=== PATIENT | male | born 1980 | race Caucasian/White ===

== ENCOUNTER → 2017-04-06 | Outpatient (CLI) | payer OTHER ==
[2017-04-06 13:59] LABS: Anion Gap 10 mmol/L; Blood Urea Nitrogen 5 mg/dL (9-20); Calcium 9.3 mg/dL (8.4-10.2); Carbon Dioxide 28 mmol/L (22-30); Chloride 103 mmol/L (98-107); Glucose 126 mg/dL (74-99); Non-African American GFR(MDRD) >60 (>60 ml/min/1.73 sqM); Potassium 3.9 mmol/L (3.5-5.1); Sodium 141 mmol/L (137-145)
--- NOTE | 2017-04-07 02:30 | MR ---
EXAMINATION TYPE: MR femur/thigh LT wo/w con DATE OF EXAM: 04/06/2017 COMPARISON: NONE HISTORY: LT AKA stump pain/swelling CONTRAST: Standard multiplanar, multisequence MRI departmental protocol utilizing 15 mL intravenous MultiHance gadolinium contrast. FINDINGS: There is left side above-knee amputation deformity. I see no focal bone destruction. There is soft tissue pathologic enhancement on the lateral aspect of the stump. This measures 5 x 2.5 cm. T here is no pathologic fluid collection. There is increased signal on the proton density images involv ing cutaneous tissues over the lateral and inferior stump. IMPRESSION: No evidence of osteomyelitis. Soft tissue enhancement at the lateral aspect of the stump consistent with myositis or phlegmon. Subc utaneous edema consistent with focal cellulitis. No abscess seen.
== END | disposition home or self-care (01) ==
LOC: RADMRIMAIN 13:07
PROVIDERS: ATTEND Surgery Vascular Surgery
DX: L03.116 Cellulitis of left lower limb (principal); Z89.612 Acquired absence of left leg above knee
CPT/HCPCS: 80048; 73720; 36415; A9577

== ENCOUNTER → 2022-10-13 | Outpatient (CLI) | payer OTHER ==
[2022-10-13 12:18] VITALS: BP 121/66; PULSE 74; RESP 18; TEMP 98
--- NOTE | 2022-10-13 14:14 | P.PAINPG ---
PQRS Measure Charge Sheet Comment: HISTORY OF PRESENT ILLNESS: 42 yr old as a referral from Dr Smith presents today w severe and chronic secondary to for evaluation. Pt states pain level is at 8 /10 in intensity, constant, localized in the lower lumbar spine, sharp in character w shooting pain towards the LLE. Pain is provoked by cold weather. Pain is alleviated by PT x 1 session which provoked pain, massage therapy x 5 visits in 2021, heat rice bag use, meds (Rosine, ibu), repositioning and rest. PMH: OA, Vitamin D Deficiency, Asthma, Anxiety PSH: L AKA, SH: Daily tobacco use, No ETOH use, Cannabis use. . On Disability. FH: Non contributory All: NKDA Meds: See list REVIEW OF ORGAN SYSTEMS: CONSTITUTIONAL: No fevers or chills. No recent weight loss. NEUROLOGICAL: + numbness and tingling along the distal extremities. No seizure disorders or headaches. MUSCULOSKELETAL: + pain PSYCHIATRIC: Denies current depression or suicidal thoughts. Physical Examinations : Constitutional : Cooperative , not in acute distress . Neurologic : Cranial nerve II to XII intact. No focal neurological deficits. Psychiatric : alert & oriented x 3. Matching mood & appropriate affect. Judgment & insight intact. Musculoskeletal : Cervical Spine Motor strength in the deltoid and biceps: Normal right side. Normal Left side Motor strength biceps and the wrist extensors: Normal right side . Normal left side Motor strength in the triceps muscle: Normal right side. Normal left side Deep tendon reflexes: Normal at the biceps. Normal at Brachioradialis. Normal at triceps Vertebral body tenderness to deep palpation over Cervical facet loading test: positive bilaterally Spurling test: positive bilaterally Neck distraction test: positive bilaterally Shanique sign: positive bilaterally Lumbar spine +L AKA Motor strength lower extremities ,thigh and legs 5/5 Right side , 5/5 Left side Deep tendon reflexes : Normal Knee Jerk. Normal Ankle Jerk Vertebral body tenderness over Lumbar facet Loading Test: positive Right / positive Left Range of motion of the lumbar spine Flexion 30 degrees, extension 10 degrees Straight Leg Raise test: Left/ Right positive at degree Verona test: positive right / positive left. Severe tenderness over the Sacroiliac joint on the Right / Left sides Gaenslen test: positive bilaterally Seated flexion test: positive bilaterally. Sacral spine : Severe tenderness over the Sacroiliac joint: right side / left side Range of motion: Flexion of the lumbar spine <60 degrees Range of motion: Extension of the lumbar spine <20 degrees Gaenslen's Test positive Kee's Test positive Verona test: positive right side / left side Thigh Thrust Test Sacral Thrust Test Imaging: MR [facility] from 04/06/2017 reviewed Assessment/ Plan : Phantom LLE pain s/p L AKA (2016) Recommendation of x ray of the lumbar spine re: M 51.36 May need additional testing if indicated. May return to clinic within 2-3 wks for re evaluation. Risks, benefits of procedure discussed and patient verbalized understanding. Denies aspirin or anti- coagulant use or medical history of diabetes. Protocol for discontinuation/ continuation of medications marco a procedure discussed. All questions answered. I have spent greater than 30 minutes on patient care today. Dr Iraheta was available by phone for the evaluation of this patient. The time was used to review the medical records including relevant urine studies and Prescription history (MAPs), review of the available imaging, evaluation and examination of the patient, coordination of care with the medical staff and if applicable referring physicians, as well as creation of the medical record PQRS Narrative: Smoking Status Unknown if ever smoked Home Medications: Ambulatory Orders Cholecalciferol (Vitamin D3) [Vitamin D3 (125 MCG = 5,000 IU)] 125 mcg PO DAILY 10/13/22 DULoxetine HCL [Cymbalta] 60 mg PO ONCE 10/13/22 HYDROcodone/APAP 7.5-325MG [Rosine 7.5-325] 1 tab PO Q4-6H PRN 10/13/22 Naloxone [Narcan] 0 mg NASAL DIRECTED PRN 10/13/22 QUEtiapine FUMARATE [SEROquel XR] 150 mg PO HS 10/13/22 Sildenafil Citrate [Sildenafil] 20 mg PO DIRECTED 10/13/22 Tamsulosin HCl [Flomax] 0.4 mg PO ONCE 10/13/22 Controlled Substance Measures - Controlled Substance Measures Is patient prescribed a controlled substance at discharge?: No
== END ==
LOC: PNWHC3 10:04
PROVIDERS: ATTEND Specialist
DX: G54.6 Phantom limb syndrome with pain (principal); Z89.612 Acquired absence of left leg above knee; M19.90 Unspecified osteoarthritis, unspecified site; J45.909 Unspecified asthma, uncomplicated; K21.9 Gastro-esophageal reflux disease without esophagitis
CPT/HCPCS: 99202

== ENCOUNTER → 2022-10-13 | Outpatient (CLI) | payer OTHER ==
--- NOTE | 2022-10-13 11:46 | XR ---
EXAMINATION TYPE: XR lumbar spine 2 or 3V DATE OF EXAM: 10/13/2022 CLINICAL HISTORY: M51.36 OTHER INTERVERTEBRAL DISC DEGENERATION, PRASANNA TECHNIQUE: Three views of the lumbar spine are submitted. COMPARISON: CT chest abdomen and pelvis 09/15/2016 FINDINGS: There are 5 lumbar type vertebral bodies identified. The lumbar spine shows satisfactory alignment w ithout evidence of acute fracture or dislocation. Vertebral body heights are within normal limits. Disc spaces are within normal limits. The overlying soft tissue appears unremarkable. IMPRESSION: No acute fracture or dislocation is seen in the lumbar spine.
== END | disposition home or self-care (01) ==
LOC: RADXRMAIN 11:09
PROVIDERS: ATTEND Physician Assistant Medical
DX: M51.36 Other intervertebral disc degeneration, lumbar region (principal)
CPT/HCPCS: 72100

== ENCOUNTER 2025-04-04 07:49 | Day surgery (SDC) | payer BC, OTHER ==
[2025-04-04] MEDS: IV FLUID CONTINUATION 1,000 ML IV ONE (08:09)
[2025-04-04 08:14] VITALS: RESP 16; TEMP 97.8
[2025-04-04] MEDS: LACTATED RINGERS 1,000 ML IV SCH (08:25)
[2025-04-04] MEDS ORDERED: PROPOFOL 10 MG/ML 20 ML VIAL IV ONE (08:56)
[2025-04-04] MEDS ORDERED: LIDOCAINE 1% INJ 10MG/ML (20 ML MDV) ONE (08:56)
--- NOTE | 2025-04-04 09:17 | P.PCN ---
Date of Procedure: 04/04/25 Preoperative Diagnosis: Screening Postoperative Diagnosis: Internal hemorrhoids Procedure(s) Performed: Colonoscopy Anesthesia: MAC Surgeon: Cuate Gates Pathology: none sent Condition: stable Disposition: same day Indications for Procedure: 44-year-old male presents today for screening colonoscopy. Denies any blood in his stool. Never has had colonoscopy previously. Risks, benefits and alternatives were provided to the patient. All questions answered. Operative Findings: Overall, normal-appearing colon Internal hemorrhoids Description of Procedure: The patient was brought to the endoscopy suite and placed in left lateral decubitus position and adequate sedation was achieved using conscious sedation. Digital rectal exam was performed and mild internal hemorrhoids were palpated. An endoscope was then placed in the rectum and advanced to the cecum as identified by landmarks including the appendiceal orifice and the ileocecal valve. The prep was good. The colonoscope was then slowly withdrawn, examining for any mucosal abnormalities. The cecum, ascending, transverse, descending and sigmoid colon were visualized adequately. There were no large neoplastic lesions noted throughout the colon. No obvious polyps noted throughout the colon. No significant evidence of diverticulosis. Hemostasis was maintained. Retroflexion was performed in the rectum and internal hemorrhoids. Excess air was removed, the colonoscope withdrawn and the procedure terminated. The patient was then transferred to the recovery unit in stable condition. Repeat colonoscopy should be performed in 10 years.
[2025-04-04 09:33] VITALS: BP 117/69; PULSE 65
== END 2025-04-04 10:10 | disposition home or self-care (01) ==
LOC: ORWHC2ENDO 07:49
PROVIDERS: ATTEND Surgery
DX: Z12.11 Encounter for screening for malignant neoplasm of colon (principal); K64.8 Other hemorrhoids; Z79.899 Other long term (current) drug therapy; Z88.6 Allergy status to analgesic agent
CPT/HCPCS: 45378; J2003; J2704